=== PATIENT | male | born 1935 | race Caucasian/White ===

== ENCOUNTER 2017-01-26 20:03 | Emergency (ER) | payer MEDICARE, BC ==
[~2017-01-26] VITALS: Ht 170.2 cm; Wt 69.6 kg
[2017-01-26] MEDS ORDERED: LISINOPRIL2.5 MG PO (20:21)
[2017-01-26] MEDS ORDERED: ZETIA10 MG PO (20:21)
[2017-01-26] MEDS ORDERED: JANUVIA25 MG PO (20:21)
[2017-01-26] MEDS ORDERED: PLAVIX75 MG PO (20:22)
[2017-01-26] MEDS ORDERED: SPIRONO/HCTZ PO (20:22)
[2017-01-26] MEDS ORDERED: PROTONIX40 M2 PO (20:46)
[2017-01-26] MEDS ORDERED: METO25TAB PO (20:47)
[2017-01-26] MEDS ORDERED: CLONIDINE0.1 MG PO (20:47)
[2017-01-26] MEDS ORDERED: TAMSULOSIN0.4 MG PO (20:47)
[2017-01-26] MEDS ORDERED: HYDROXYCHLOR200 M1 PO (20:48)
[2017-01-26] MEDS ORDERED: AMLODIPINE BESY1 TA1 PO (20:48)
[2017-01-26 20:51] LABS: HEMATOCRIT 37.1 % (39.0-50.0); HEMOGLOBIN 12.4 g/dl (14.0-18.0); IMMATURE GRANULOCYTES 0.3 % (0.0-1.0); MEAN CELL VOLUME 94.4 fL CALC (80.0-100.0); MEAN CORPUSCULAR HGB 31.6 pG CALC (26.0-32.0); MEAN CORPUSCULAR HGB CONC 33.4 g/L CALC (32.0-36.0); NEUT# 4.89 thou/uL (1.82-7.42); RED BLOOD COUNT 3.93 mill/uL (4.70-6.10); RED CELL DISTRI WIDTH 12.5 % (11.5-15.5); URINE BILIRUBIN - DIPSTICK NEGATIVE (NEGATIVE); URINE BLOOD DIPSTICK SMALL (NEGATIVE); URINE CLARITY CLEAR; URINE COLOR YELLOW; URINE GLUCOSE - DIPSTICK NEGATIVE (NEGATIVE); URINE KETONE NEGATIVE (NEGATIVE); URINE LEUK ESTERASE NEGATIVE (NEGATIVE); URINE NITRITE - DIPSTICK NEGATIVE (Negative); URINE PH 5.5 (4.5-8.0); URINE PROTEIN - DIPSTICK 100 mg/dL (NEG-TRACE); URINE UROBILINOGEN - DIPSTICK 0.2 E.U./dL (0.2)
[2017-01-26 21:02] LABS: URINE RBC 0-2 RBC/hpf (0-5); URINE WBC 0-2 WBC/hpf (0-5)
[2017-01-26 21:08] LABS: ALBUMIN 4.4 g/dL (3.2-5.0); BILIRUBIN, TOTAL 0.6 mg/dL (0.0-1.4); CREATININE 1.4 mg/dL (0.7-1.3); POTASSIUM 3.8 mmol/l (3.5-5.1); TOTAL PROTEIN 7.3 g/dL (6.3-8.2)
[2017-01-27 01:26] VITALS: BP 242/88
== END 2017-01-27 01:24 | disposition short-term general hospital (02) ==
LOC: ED 20:03 → ED-I 21:29 → ED 01-27 01:24
DX: I10 Essential (primary) hypertension (principal); R79.89 Other specified abnormal findings of blood chemistry; I25.10 Atherosclerotic heart disease of native coronary artery without angina pectoris; Z98.61 Coronary angioplasty status

== ENCOUNTER 2020-10-06 09:17 | Emergency (ER) | payer MEDICARE, BC ==
[~2020-10-06] VITALS: Ht 170.2 cm; Wt 59.0 kg
[2020-10-06 10:20] LABS: HEMATOCRIT 32.9 % (39.0-50.0); HEMOGLOBIN 10.3 g/dl (14.0-18.0); IMMATURE GRANULOCYTES 0.4 % (0.0-5.0); MEAN CELL VOLUME 95.1 fL CALC (80.0-100.0); MEAN CORPUSCULAR HGB 29.8 pG CALC (26.0-32.0); MEAN CORPUSCULAR HGB CONC 31.3 g/dL CAL (32.0-36.0); NEUT# 4.55 thou/uL (1.82-7.42); RED BLOOD COUNT 3.46 mill/uL (4.70-6.10); RED CELL DISTRI WIDTH 13.6 % (11.5-15.5)
[2020-10-06 10:25] LABS: URINE BILIRUBIN - DIPSTICK NEGATIVE (NEGATIVE); URINE BLOOD DIPSTICK SMALL (NEGATIVE); URINE COLOR YELLOW; URINE GLUCOSE - DIPSTICK NEGATIVE (NEGATIVE); URINE KETONE NEGATIVE (NEGATIVE); URINE LEUK ESTERASE NEGATIVE (NEGATIVE); URINE NITRITE - DIPSTICK NEGATIVE (Negative); URINE PROTEIN - DIPSTICK 100 mg/dL (NEG-TRACE); URINE SPECIFIC GRAVITY 1.015; URINE UROBILINOGEN - DIPSTICK 0.2 E.U./dL (0.2)
[2020-10-06 10:32] LABS: URINE EPITHELIAL CELLS FEW EPI/hpf (0-FEW); URINE MUCUS MODERATE hpf (NONE-FEW); URINE RBC 0-2 RBC/hpf (0-5)
[2020-10-06 10:39] LABS: ALBUMIN 4.2 g/dL (3.2-5.0); CREATININE 2.4 mg/dL (0.7-1.3); POTASSIUM 4.2 mmol/l (3.5-5.1); TOTAL PROTEIN 7.2 g/dL (6.3-8.2)
[2020-10-06 10:42] LABS: BILIRUBIN, TOTAL 0.7 mg/dL (0.0-1.4)
[2020-10-06 13:01] VITALS: BP 168/75
== END 2020-10-06 13:00 | disposition home or self-care (01) ==
LOC: ED 09:17
PROVIDERS: Emergency Medicine
DX: I10 Essential (primary) hypertension (principal); E11.9 Type 2 diabetes mellitus without complications; K21.9 Gastro-esophageal reflux disease without esophagitis; E78.5 Hyperlipidemia, unspecified; I25.10 Atherosclerotic heart disease of native coronary artery without angina pectoris; Z95.5 Presence of coronary angioplasty implant and graft

== ENCOUNTER → 2020-10-06 | Day surgery (SDC) | payer MEDICARE, BC ==
[~2020-10-06] VITALS: Ht 170.2 cm; Wt 59.0 kg
[~2020-10-06] MED LIST: ARAVA20 MG PO; ASPIRIN 8181 MG PO; CLONIDINE0.1 MG PO; ELIQUIS2.5 MG PO; HYDROXYCHLOR200 M1 PO; JANUVIA25 MG PO; LIPITOR20 MG PO; MIRTAZAPINE15 MG PO; NORVASC5 M1 PO; PEPCID20 MG PO; SPIRONO/HCTZ PO; TAMSULOSIN0.4 MG PO; TOPROL XL50 MG PO; ZETIA10 MG PO
[2020-10-06 09:28] VITALS: BP 241/108
== END | disposition short-term general hospital (02) ==
LOC: ENDO 07:48 → ORM 09:30
PROVIDERS: ATTEND Surgery
DX: R63.4 Abnormal weight loss (principal); E11.9 Type 2 diabetes mellitus without complications; I10 Essential (primary) hypertension; E78.5 Hyperlipidemia, unspecified; K21.9 Gastro-esophageal reflux disease without esophagitis; Z53.09 Procedure and treatment not carried out because of other contraindication; Z79.84 Long term (current) use of oral hypoglycemic drugs; Z95.5 Presence of coronary angioplasty implant and graft; Z20.822 Contact with and (suspected) exposure to COVID-19